=== PATIENT | female | born 2000 | race African-American/Black ===

== ENCOUNTER 2024-09-18 13:00 | Day surgery (SDC) | payer OTHER ==
[2024-09-11 13:27] VITALS: BMI 20.8
[2024-09-18] MEDS ORDERED: PROPOFOL 20 ML ONE (13:32)
[2024-09-18 14:37] VITALS: TEMP 98
[2024-09-18 14:41] VITALS: BP 122/76; PULSE 78; RESP 20
== END 2024-09-18 14:30 | disposition home or self-care (01) ==
LOC: FASU-ENDO 13:00
PROVIDERS: ATTEND Internal Medicine Gastroenterology
PROC: 0DB68ZX Excision of Stomach, Via Natural or Artificial Opening Endoscopic, Diagnostic (ICD-10-PCS; 2024-09-18)
PROC: 0DB48ZX Excision of Esophagogastric Junction, Via Natural or Artificial Opening Endoscopic, Diagnostic (ICD-10-PCS; 2024-09-18)
PROC: 0DB98ZX Excision of Duodenum, Via Natural or Artificial Opening Endoscopic, Diagnostic (ICD-10-PCS; principal; 2024-09-18 13:30)
DX: K29.50 Unspecified chronic gastritis without bleeding (principal); K21.00 Gastro-esophageal reflux disease with esophagitis, without bleeding; R10.13 Epigastric pain
CPT/HCPCS: 81025; 88305-TC; 88342-TC